=== PATIENT | male | born 1975 | race Caucasian/White ===

== ENCOUNTER 2024-02-15 06:55 | Outpatient (CLI) | payer OTHER | END 2024-02-15 23:59 | disposition critical access hospital (66) | LOC: EMS 06:55 | DX: R07.9 Chest pain, unspecified (principal); R05.9 Cough, unspecified; R68.83 Chills (without fever); R03.0 Elevated blood-pressure reading, without diagnosis of hypertension | CPT/HCPCS: A0425; A0427 ==

== ENCOUNTER 2024-02-15 07:18 | Emergency (ER) | payer OTHER ==
--- NOTE | 2024-02-15 07:30 | ED Physician Documentation ---
PD HPI CHEST PAIN - Stated complaint Stated Complaint: CHEST PAIN - Chief complaint Chief Complaint: Cardiac - History obtained from History obtained from: Patient, EMS - History of Present Illness Timing - onset: How many hours ago (few) Timing - onset during: Sleep Timing - duration: Hours Timing - details: Abrupt onset, Still present, Constant. No: Waxing and waning Quality: Tightness, Aching. No: Sharp, Tearing Location: Right chest Associated symptoms: Nausea. No: Feeling faint / dizzy, Palpitations Similar symptoms before: Has not had sx before Recently seen: Not recently seen Review of Systems Cardiac: denies: Palpitations, Pedal edema, Calf pain Respiratory: denies: Dyspnea, Cough, Wheezing GI: reports: Nausea. denies: Abdominal Swelling, Vomiting, Diarrhea Musculoskeletal: denies: Extremity swelling PD PAST MEDICAL HISTORY - Past Medical History Respiratory: None Neuro: None Endocrine/Autoimmune: None - Present Medications Home Medications: Ambulatory Orders Medication Instructions Recorded Confirmed Dicyclomine [Bentyl] 10 mg PO Q8H PRN #20 cap 02/15/24 Ondansetron Odt [Zofran] 4 mg TL Q6H PRN #10 tablet 02/15/24 Oxycodone HCl/Acetaminophen 1 each PO Q6H PRN #14 tablet 02/15/24 [Percocet 5-325 mg Tablet] - Allergies Allergies/Adverse Reactions: Allergies Allergy/AdvReac Type Severity Reaction Status Date / Time No Known Drug Allergies Allergy Verified 02/15/24 07:26 - Social History Does the pt smoke?: No Smoking Status: Never smoker - Family History Family history: reports: CAD, Other (many family members with gallbladder stones and problems, several with CCY. ) PD ED PE NORMAL - Vitals Vital signs reviewed: Yes - General General: Alert and oriented X 3, Well developed/nourished, Other (appears in significant pain right chest. ) - Neck Neck: Supple, no meningeal sign, No adenopathy - Cardiac Cardiac: RRR, No murmur - Respiratory Respiratory: No respiratory distress, Clear bilaterally, Other (no chestwall tenderness. ) - Abdomen Abdomen: Normal bowel sounds, Soft, Non distended, No organomegaly, Other (markedly tender RUQ with local guarding. NO rebound. rest of abd not tender. ) - Derm Derm: Normal color, Warm and dry - Extremities Extremities: Normal ROM s pain, No edema, No calf tenderness / cord Results - Vitals Vitals: Vital Signs - 24 hr 02/15/24 02/15/24 02/15/24 07:21 09:26 10:49 Temperature 36.0 C L Heart Rate 98 57 L 67 Respiratory 18 18 19 Rate Blood Pressure 160/92 H 154/90 H 152/90 H O2 Saturation 99 98 96 Oxygen O2 Source Room air - EKG (time done) 07:25 EKG releavant findings:: EKG personally interpreted by author of this note. Relevant findings are: Rate: Rate (enter#) (59) Rhythm: NSR [place]: Normal Intervals: Normal PA QRS: Normal Ischemia: Normal ST segments, ST elevation c/w repol. No: ST elevation c/w ischemia, ST depression - Labs Labs: Laboratory Tests 02/15/24 02/15/24 02/15/24 07:32 07:32 07:32 WBC 9.1 RBC 4.42 L Hgb 13.6 L Hct 41.4 L MCV 93.7 MCH 30.8 MCHC 32.9 RDW 13.0 Plt Count 199 MPV 11.6 H Neut # (Auto) 7.4 H Lymph # (Auto) 1.1 L [place] # (Auto) 0.4 Eos # (Auto) 0.1 Baso # (Auto) 0.1 Absolute Nucleated RBC 0.00 Nucleated RBC % 0.0 Sodium 137 Potassium 3.7 Chloride 101 Carbon Dioxide 26 Anion Gap 10.0 BUN 18 Creatinine 1.1 Estimated GFR (MDRD) 71 L Glucose 176 H Calcium 9.8 Total Bilirubin 0.4 AST 19 ALT 25 Alkaline Phosphatase 46 Troponin I High Sens < 2.3 L B-Natriuretic Peptide 15 Total Protein 7.9 Albumin 4.6 Globulin 3.3 Albumin/Globulin Ratio 1.4 Lipase 13 - Rads (name of study) abd US Relevant Findings:: Prelim report reviewed (final impression says cholelithiasis without cholecystitis. Initial body of the report for GB says no stones, but presume it dictation error. ), EMP independent interpretation of test, Other (US Tech gave verbal impression of lots of stones, none at neck currently, no wall thickening nor surrounding lfuid. ) chest xray Relevant Findings:: Prelim report reviewed (no acute process), EMP independent interpretation of test PD Medical Decision Making - ED course Complexity details: reviewed results (CXR, ECG and trop are normal after several hours of consistent cramping pain right chest. Has abd tenderness on exam. I believe his pain is from biliary colic, with negative testing for ACS.), re- evaluated patient (pain improved reasonably with IV toradol and dilaudid. ), considered differential (onset few hours ago of constant, intense, cramping pain right chest. No change with ASA, breathing, movement. He had not noted abd pain per se, until I palpated RUQ. Very tender there.), d/w patient Departure - Departure Disposition: Home, Self Care Clinical Impression: Chest pain, Ruled out for myocardial infarction, Gallstones, Biliary colic Condition: Stable Record reviewed to determine appropriate education?: Yes Instructions: ED Gallstone W Biliary Colic Follow-Up: [facility] [Provider Group] Prescriptions: Dicyclomine [Bentyl] 10 mg PO Q8H PRN #20 cap PRN Reason: Abdominal Pain Oxycodone HCl/Acetaminophen [Percocet 5-325 mg Tablet] 1 each PO Q6H PRN #14 tablet PRN Reason: pain Ondansetron Odt [Zofran] 4 mg TL Q6H PRN #10 tablet PRN Reason: Nausea / Vomiting Comments: Your EKG, chest x-ray, blood test called troponin are normal. No signs of heart or lung abnormalities causing this. Your blood test correlating with pancreas and liver are also normal. Your ultrasound is showing gallstones within the gallbladder. The report from the nursery technician was multiple gallstones but none seem to be blocked at the neck or opening of the gallbladder at this time. No inflammation or wall thickening to suggest acute infection or inflammation. Your symptoms however do sound likely there was some temporary blockage to the outflow of the gallbladder causing spasms. This can be a isolated episode although with several gallstones in your gallbladder, it may be that some of them are "kicked up from the mud so to speak" and more mobile now. This makes him more likely to get in the way when the gallbladder is trying to E flux the bile to digest fats. Low-fat diet is recommended certainly in the short-term over the next few weeks. This can potentially be a recurring episode. I wrote prescription for ondansetron for nausea and dicyclomine for spasms of the gallbladder and intestine. To that add Tylenol or ibuprofen or if the pain is coming on abruptly, then oxycodone for more severe pain. I would suggest consultation with the general surgery. This does not have to be urgent or immediate but to discuss various algorithms of when to have your gallbladder removed based on frequency and severity of episodes etc. Return to the ER if severe. Also be wary of fevers, repetitive vomiting, generalized pain etc. I sent your prescriptions to [facility] in [place]. Off work today. I am prescribing a short course of narcotic pain medication for you. These are potentially dangerous and addictive medications that should be used carefully. These medications may constipate you. Take an [id number] stool softener such as docusate twice daily with plenty of water while taking these medications. If you go 24 hours without a bowel movement, take [id number] MiraLAX, per package instructions. Do not drink or drive while taking these medications. If you received narcotic or sedating medications while in the emergency department do not drive for 24 hours. Store this medication in a safe, secure place and out of reach of children. It is a violation of federal law to give or sell this medication to another person or to use in a manner other than prescribed. The ED will not refill narcotic prescriptions, including prescriptions lost or stolen. You can dispose of unwanted medications at the [facility]'s office or at several pharmacies such as [facility]. Forms: PCP List Discharge Date/Time: 02/15/24 10:50
[2024-02-15] MEDS: KETOROLAC 15 MG/ML VIAL IVP STA (07:39)
[2024-02-15] MEDS: HYDROmorphone 1 MG/ML CARPUJECT IVP STA (07:39)
[2024-02-15 07:54] LABS: ALBUMIN 4.6 g/dL (3.2-5.5); ALBUMIN/GLOBULIN RATIO 1.4 (1.0-2.2); ALKALINE PHOSPHATASE 46 IU/L (42-121); ALT ALANINE AMINOTRANSFERASE 25 IU/L (10-60); AST ASPARTATE AMINOTRANSFERASE 19 IU/L (10-42); BASOPHILS # (AUTO) 0.1 10^3/uL (0.0-0.1); BASOPHILS % (AUTO) 0.7 %; BILIRUBIN,TOTAL 0.4 mg/dL (0.2-1.0); BUN - BLOOD UREA NITROGEN 18 mg/dL (6-20); CALCIUM 9.8 mg/dL (8.5-10.3); CARBON DIOXIDE - CO2 26 mmol/L (21-32); CHLORIDE 101 mmol/L (101-111); CREATININE 1.1 mg/dL (0.6-1.3); EOSINOPHILS # (AUTO) 0.1 10^3/uL (0.0-0.7); EOSINOPHILS % (AUTO) 0.9 %; GFR - MDRD 71 (>89); GLUCOSE 176 mg/dL (74-104); HCT - HEMATOCRIT 41.4 % (42.0-52.0); HGB - HEMOGLOBIN 13.6 g/dL (14.0-18.0); LIPASE 13 U/L (11-82); LYMPHOCYTES # (AUTO) 1.1 10^3/uL (1.5-3.5); LYMPHOCYTES % (AUTO) 11.8 %; MEAN CORPUSCULAR HEMOGLOBIN 30.8 pg (27.0-31.0); MEAN CORPUSCULAR HGB CONC 32.9 g/dL (32.0-36.0); MEAN CORPUSCULAR VOLUME 93.7 fL (80.0-94.0); MEAN PLATELET VOLUME 11.6 fL (7.4-11.4); MONOCYTES # (AUTO) 0.4 10^3/uL (0.0-1.0); MONOCYTES % (AUTO) 4.5 %; NEUTROPHILS # (AUTO) 7.4 10^3/uL (1.5-6.6); NEUTROPHILS % (AUTO) 81.7 %; PLT - PLATELET COUNT 199 10^3/uL (130-450); POTASSIUM 3.7 mmol/L (3.5-4.5); RED BLOOD COUNT 4.42 10^6/uL (4.70-6.10); SODIUM 137 mmol/L (135-145); TOTAL PROTEIN 7.9 g/dL (6.4-8.9); WHITE BLOOD COUNT 9.1 x10^3/uL (4.8-10.8)
[2024-02-15 08:00] LABS: TROPONIN I HIGH SENSITIVITY < 2.3 ng/L (2.3-19.7)
--- NOTE | 2024-02-15 08:15 | XRAY Report ---
PROCEDURE: Chest 1V INDICATIONS: Chest Pain TECHNIQUE: One view of the chest was acquired. COMPARISON: None. FINDINGS: Surgical changes and devices: None. Lungs and pleura: No dense consolidation or pleural effusion. Very low lung volumes. Mediastinum: Prominent right hilar and upper mediastinal contours. Overall heart size is within norm al limits Bones and chest wall: Unremarkable IMPRESSION: Very low lung volumes on single view portable radiograph, limiting evaluation. No airspace consolidat ion or pleural effusion. Mildly prominent right hilar and upper mediastinal contours, indeterminate on radiography. Reviewed by: London Red MD on 02/15/2024 8:14 AM PDT Approved by: London Red MD on 02/15/2024 8:14 AM PDT Station ID: [id number]
--- NOTE | 2024-02-15 10:11 | Ultrasound Report ---
PROCEDURE: Abdomen Limited INDICATIONS: RUQ abd into chest pain TECHNIQUE: Real-time focused scanning was performed of the abdomen, with image documentation. COMPARISONS: None. FINDINGS: Liver: Liver is normal in size and homogeneous in echotexture. Gallbladder: No stones. No gallbladder wall thickening with gallbladder wall measuring 1.7 mm. No per icholecystic fluid. No sonographic [place] sign. Biliary ducts: Intrahepatic bile ducts are non-dilated. Extrahepatic bile duct caliber measures 6.5 mm. Normal is 6-7 mm or less in diameter, or 10 mm or less post-cholecystectomy. Pancreas: Visualized portions of the pancreas are sonographically normal. Right kidney: Normal in size and echotexture. Right kidney measures 11.6 cm long. No hydronephrosis or nephrolithiasis. No solid masses. No complex renal cystic lesions which require follow-up. IVC: Intrahepatic inferior vena cava is patent. Miscellaneous: No free abdominal fluid. IMPRESSION: Cholelithiasis without sonographic evidence of cholecystitis. If there is clinical concern for cholec ystitis, consider nuclear medicine HIDA scan for additional evaluation. Reviewed by: Janeth Estevez MD, PhD on 02/15/2024 10:10 AM PDT Approved by: Janeth Estevez MD, PhD on 02/15/2024 10:10 AM PDT Station ID: [id number]
[2024-02-15] MEDS: DICYCLOMINE 10 MG CAPSULE PO STA (10:38)
[2024-02-15] MEDS: HYDROmorphone 0.5 MG/0.5 ML SYRINGE IVP STA (10:38)
[2024-02-15 10:59] VITALS: BP 152/90; O2SAT 96
== END 2024-02-15 10:50 | disposition home or self-care (01) ==
LOC: ED 07:18
DX: K80.20 Calculus of gallbladder without cholecystitis without obstruction (principal); K80.50 Calculus of bile duct without cholangitis or cholecystitis without obstruction; R07.9 Chest pain, unspecified
CPT/HCPCS: 36415; 71045; 76705; 80053; 83690; 83880; 84484; 85025; 93005; 96374; 96376; 99284; A9270; J1170